=== PATIENT | male | born 1950 | race Caucasian/White ===

== ENCOUNTER 2023-03-24 09:23 | Inpatient (IN) | payer OTHER ==
[~2023-03-24] VITALS: Ht 180.3 cm; Wt 71.5 kg
[2023-03-24] VITALS (10 sets, daily range): BP systolic 135–177; BP diastolic 73–104
[~2023-03-24 09:23] MED LIST: AMIO200 PO; ASPI81CH PO; ATOR20 PO; FURO20 PO; HYDACE5 PO; METO25ER PO; OLME5TAB; OMEP20ER PO; OXYC10TA19 PO; Senna8.6 MG PO; TRAM50 PO
[2023-03-24 10:16] LABS: BASOPHILS ABSOLUTE AUTO 0.03 K/mm3 (0.00-0.23); BASOPHILS PERCENT AUTO 1 % (0-2); EOSINOPHILS ABSOLUTE AUTO 0.53 K/mm3 (0.00-0.68); EOSINOPHILS PERCENT AUTO 10 % (0-6); Hemoglobin 13.6 g/dL (13.5-17.5); IMMATURE GRAN ABSOLUTE AUTO 0.03 K/mm3 (0.00-0.10); IMMATURE GRAN PERCENT AUTO 1 % (0-1); LYMPHOCYTES ABSOLUTE AUTO 1.33 K/mm3 (0.84-5.20); LYMPHOCYTES PERCENT AUTO 24 % (21-46); MONOCYTES ABSOLUTE AUTO 0.58 K/mm3 (0.16-1.47); MONOCYTES PERCENT AUTO 11 % (4-13); Mean Corpuscular HGB 32.2 pg (26.0-34.0); Mean Corpuscular Volume 95 fL (80-100); Mean Platelet Volume 10.6 fL (9.1-12.4); NEUTROPHILS ABSOLUTE AUTO 3.02 K/mm3 (1.96-9.15); NEUTROPHILS PERCENT AUTO 55 % (41-73); Platelet Count 169 K/mm3 (150-400); RDW Coefficient Variation 12.6 % (11.7-14.2); RDW Standard Deviation 43.5 fL (35.1-46.3); Red Blood Cell Count 4.23 M/mm3 (4.30-5.90); White Blood Cell Count 5.52 K/mm3 (4.00-11.30)
[2023-03-24 10:33] LABS: Albumin, Blood 3.7 g/dL (3.4-5.0); Albumin/Globulin Ratio 1.1 (0.8-1.8); Bilirubin, Total 0.5 mg/dL (0.1-1.0); Bun/Creatinine Ratio 16.3 (12.0-20.0); Calcium, Blood 8.5 mg/dL (8.5-10.1); Creatinine, Blood 1.9 mg/dL (0.60-1.20); Globulin, Blood 3.5 g/dL (2.2-4.0); Total Protein, Blood 7.2 g/dL (6.4-8.2)
--- NOTE | 2023-03-24 14:02 | NUR ---
Pt. is awake in ED1. Roland is present at bedside. Bothe welcome my visit. Pt. verbalizes his increased experience with heart activity as well as original inconsistant and conflicting diagnosis he received at the [facility]. Pt. is generally pleasant. Facilitate a life review and re-establish rapport as the Pt. is known to this technical services assistant from the community. Consider matters of puneet and belief. Pt. displays evidence of being intentionally focused on getting his heart diagnosed properly. Prayed with Pt. and spouse. Both verbalize gratitude for the spiritual care visit, and welcome this technical services assistant to visit again.
--- NOTE | 2023-03-24 16:58 | NUR ---
Pt. is awake in bed. I arrived with members of the Pts. family who are known to this tool pusher from the community. Facilitated family story telling and gave pastoral encouragement. Pt. and family verbalized gratitude for the spiritual care visit.
--- NOTE | 2023-03-24 17:38 | NUR ---
PT ARRIVED IN THE UNIT APPORX 1610, PT ABLE TO STAND AND TRANSFER TO BED WITH NO ISSUES. PT ALERT AND ORIENTED X4, ANSWERS QUESTIONS APPROPRIATELY. PT DENIES CHEST PAIN SINCE ARRIVAL HAS SOME CHEST TIGHTNESS WITH EXERTION RESOLVES AT REST, SBP WAS ELEVATED AT 170'S PRN HYDRALAZINE WAS GIVEN SBP TRENDED DOWN TO 150-160'S. HRR SR/SB 50-60'S, SATS ABOVE 95% ON RA, AFEBRILE. AND SOME FAMILY MEMBERS IN THE ROOM, AWARE OF THE PLAN OF CARE. PT FOR SECOND PORTION OF STRESS TEST IN AM NPO AT MIDNIGHT NO CAFFEINE AT THIS TIME. NO OTHER ISSUES AT THIS TIME, PT EATING DINNER IN THE ROOM. PT HAS BEEN CALLING APPROPRIATELY, CALL LIGHTS IN REACH WILL REPORT TO ONCOMING SHIFT
[2023-03-25 01:14] LABS: BASOPHILS ABSOLUTE AUTO 0.05 K/mm3 (0.00-0.23); BASOPHILS PERCENT AUTO 1 % (0-2); EOSINOPHILS ABSOLUTE AUTO 0.62 K/mm3 (0.00-0.68); EOSINOPHILS PERCENT AUTO 10 % (0-6); Hematocrit 38.1 % (37.0-53.0); Hemoglobin 13.1 g/dL (13.5-17.5); IMMATURE GRAN ABSOLUTE AUTO 0.03 K/mm3 (0.00-0.10); IMMATURE GRAN PERCENT AUTO 1 % (0-1); LYMPHOCYTES ABSOLUTE AUTO 1.88 K/mm3 (0.84-5.20); LYMPHOCYTES PERCENT AUTO 32 % (21-46); MONOCYTES PERCENT AUTO 10 % (4-13); Mean Corpuscular HGB Conc 34.4 g/dL (31.5-36.5); Mean Corpuscular Volume 93 fL (80-100); Mean Platelet Volume 10.6 fL (9.1-12.4); NEUTROPHILS ABSOLUTE AUTO 2.76 K/mm3 (1.96-9.15); NEUTROPHILS PERCENT AUTO 47 % (41-73); Platelet Count 155 K/mm3 (150-400); RDW Coefficient Variation 12.5 % (11.7-14.2); RDW Standard Deviation 42.8 fL (35.1-46.3); Red Blood Cell Count 4.09 M/mm3 (4.30-5.90); White Blood Cell Count 5.94 K/mm3 (4.00-11.30)
[2023-03-25 02:09] LABS: Anion Gap 4 mmol/L (6-16); Blood Urea Nitrogen 33 mg/dL (8-24); Bun/Creatinine Ratio 16.6 (12.0-20.0); CHOL/HDL RATIO 7.8; CO2, Blood 27 mmol/L (21-32); Calcium, Blood 8.9 mg/dL (8.5-10.1); Chloride, Blood 111 mmol/L (98-108); Cholesterol 210 mg/dL (50-200); Creatinine, Blood 1.99 mg/dL (0.60-1.20); Glomerular Filtration Rate 35 (60-); Glucose, Blood 108 mg/dL (70-99); HDL Cholesterol 27 mg/dL (>39); LDL/HDL RATIO 4.5; Low Density Lipoprotein Chol 123 mg/dL (0-110); Potassium, Blood 4.9 mmol/L (3.5-5.5); Sodium, Blood 142 mmol/L (136-145); Triglycerides 301 mg/dL (30-160); Very Low Density Lipoprot Chol 60 mg/dL (6-32)
[2023-03-25 05:49] VITALS: BP 151/96
--- NOTE | 2023-03-25 07:05 | NUR ---
SHIFT SUMMARY PATIENT ALERT AND ORIENTED X4. HAD NO COMPLAINTS OF PAIN OR SHORTNESS OF BREATH. PATIENT REPORTED SOME CHEST TIGHTNESS. ON ROOM AIR WITH SPO2 >90%. VITAL SIGNS STABLE, SINUS RHYTHM ON TELE. NO ACUTE ISSUES NOTED OVERNIGHT. WILL CONTINUE TO MONITOR. CALL LIGHT WITHIN REACH.
[2023-03-25 07:28] VITALS: BP 155/90
[2023-03-25 11:16] VITALS: BP 143/73
[2023-03-25 15:22] VITALS: BP 141/84
--- NOTE | 2023-03-25 18:02 | NUR ---
PT SUMMARY; PT WAS ANTICIPATING DISCHARGE THIS AFTERNOONN, PT GOT STRESS TEST DONE RESULT CAME BACK POSITIVE FOR ISCHEMIA, DR HOLT CAME IN AND DISCUSS RESULT WITH BOTH PT AND AND ALSO THE PLAN, LINE CLOSER AND NEHPROLOGIST CONSULTED FOR POSSIBLE PROCEDURE TOMORROW. TO KEEP PT NPO AT MIDNIGHT PT IS AWARE OF THE PLAN. PT HAS BEEN CHEST PAIN FREE BUT HAS HAD SOME CHEST TIGHTNESS EPISODES WITH EXERTION PT STARTED ON IMDUR ER 30MG AND LIPITOR 80MG, NS STARTED AT 50MLS/HR. VITALS HRR SR 60-70'S, SBP 140'S SATS ABOVE 95% ON RA, AFEBRILE. PT REMAINS SBA WITH TRANSFERS, CALLS APPROPRIATELY. NO OTHER ISSUES REPORTED FOR THE SHIFT TO REPORT TO ONCOMING SHIFT
--- NOTE | 2023-03-25 18:08 | NUR ---
Pt. is awake and in be. Pt.is pleasant. Spouse is at Bedside. While visiting Dr. Jara updated the Pt. about his diagnosis and possioble procedure. Prayed with Family. Family verbalized gratitude for the spiritual care visit and welcomed this carton filling machine operator to return.
[2023-03-25 19:16] LABS: Source, Urine Clean Catch
[2023-03-25 19:27] LABS: Appearance, Urine Clear (Clear); Bilirubin, Urine Neg (Neg); Blood, Urine Neg (Neg); Color, Urine Yellow (P-Yellow); Glucose Qualitative, Urine Neg (Neg); Ketones, Urine Neg (Neg); Leukocyte Esterase, Urine Neg (Neg); Nitrite, Urine Neg (Neg); Protein, Urine Neg (Neg); Urobilinogen, Urine NORM (Normal); pH, Urine 6.5 (5.0-8.0)
[2023-03-25 19:41] VITALS: BP 130/72
--- NOTE | 2023-03-25 20:58 | NUR ---
ASSUMPTION OF CARE: THIS RN ASSUMED CARE OF PT AT APPROX 1900, BEDSIDE REPORT COMPLETED. PT ALERT, ORIENTED X4. SITTING UP IN BED CONVERSING W/ FAMILY/FRIENDS. HR 50-60'S, SINUS ON TELE. BP STABLE, MAP >65. DENIES CHEST PAIN/PRESSURE/TIGHTNESS. SPO2 >95% ON RA, RESPIRATIONS EVEN & UNLABORED. INDEPENDENTLY REPOSITIONING IN BED, VOIDING IN URINAL. NS INFUSING AT 50 ML/HR PER EMAR. PLANS FOR NPO AT 0000 FOR POSSIBLE ANGIO IN AM; PT EDUCATED ON NPO STATUS. NO OTHER NEEDS AT THIS TIME, CALL LIGHT IN REACH.
[2023-03-25 23:04] VITALS: BP 131/73
[2023-03-26] VITALS (10 sets, daily range): BP systolic 111–152; BP diastolic 64–88
--- NOTE | 2023-03-26 05:03 | NUR ---
END OF SHIFT NOTE: NO ACUTE EVENTS OVERNIGHT, SEE PREVIOUS NOTE FOR DETAILS. PT CONTINUES TO DENY CHEST PAIN/PRESSURE/TIGHTNESS. VITAL SIGNS STABLE. PT HAS BEEN NPO SINCE 0000 FOR POSSIBLE PROCEDURE THIS AM. NS INFUSING AT 100ML/HR PER EMAR. VOIDING INDEPENDENTLY IN URINAL, LIGHT YELLOW URINE. NO BM'S. NO OTHER NEEDS AT THIS TIME, PT RESTING IN BED. CALL LIGHT IN REACH.
--- NOTE | 2023-03-26 08:27 | NUR ---
PT TO MILITARY ADMINISTRATIVE TECHNICIAN TO MILITARY ADMINISTRATIVE TECHNICIAN AT APPROX 0800.
--- NOTE | 2023-03-26 10:14 | NUR ---
UPDATE PT ARRIVED FROM AT 1005. REPORT RECIEVED FROM HC RN AT BEDSIDE. TR BAND IN PLACE OF LEFT WRIST. PT UPDATED ON FREQUENT ASSESSMENTS PER PROTOCOL. 1 ML REMOVED FROM TR BAND DUE TO PT HAND FEELING COLD AND NOT GETTING A GOOD PLETH ON MONITOR. NO SWELLING OR HEMATOMA NOTED. PT AND FAMILY INSTRUCTED TO CONTACT STAFF IMMEDIATELY IF THERE ARE SIGNS OF BLEEDING, PT AND FAMILY VERBALIZED UNDERSTANDING.
--- NOTE | 2023-03-26 11:41 | NUR ---
CALLED AND UPDATED BY THIS RN PER REQUEST.
--- NOTE | 2023-03-26 12:59 | NUR ---
THIS RN TO BEDSIDE TO REMOVE 2ML FROM TR BAND. SMALL AMOUNT OF BLOOD NOTED AT SITE, 2ML AIR PUT BACK INTO TR BAND.
--- NOTE | 2023-03-26 17:37 | NUR ---
SHIFT SUMMARY PT AOX4 CALLS APPROPRIATELY AND OBEYS COMMANDS. TELE SINUS RHYTHM 60s-70s. PT DENIES CHEST PAIN/PRESSURE. BREATHING EVEN AND UNLABORED. BOWEL TONES PRESENT X4 QUADRANTS PT DENIES N/V/D. PT TO ADJUNCT PHYSICAL EDUCATION INSTRUCTOR TODAY FOR ANGIOGRAM 1 STENT PLACED IN PREVIOUS GRAFT SITE PER HC. TR BAND IN PLACE WHEN PT RETURNED TO UNIT. TR BAND RECOVERED AIR REMOVAL CHARTING TO FOLLOW. NO ACUTE CHANGES. 1220 2ML REMOVED FROM TR BAND 1300 BLOOD NOTED AT INSERTION SITE 2ML INSERTED INTO TR BAND 1450 NO BLOOD NOTED AT INSERTION SITE 2 ML REMOVED 1510 2 ML REMOVED 1525 2 ML REMOVED 1620 2 ML REMOVED 1720 3 ML REMOVED FROM TR BAND COMPLETELY DEFLATED.
--- NOTE | 2023-03-26 17:55 | NUR ---
Pt. is awake in bed and welcomes this hide shaker. Spouse is present at bedside. Both are pleasant and know to this hide shaker from the community. Pt. displayed evidence of understanding that his diagnosis will require him to return in 6-8 wks. Considered many matters of puneet and belief. Prayed with Pt. and then Pt. prayed for [facility] hide shaker. Will remain avilable to Pt. and family.
--- NOTE | 2023-03-26 18:26 | NUR ---
TR BAND REMOVED AT 1820. NO HEMATOMA OR BLEEDING NOTED. SITE CLEANED WITH CHLORAPREP AND TEGADERM PLACED.
--- NOTE | 2023-03-26 21:48 | NUR ---
ASSUMPTION OF CARE: THIS RN ASSUMED CARE OF PT AT 1900, BEDSIDE REPORT FROM EVELINA LU. PT ALERT, ORIENTED X4, SITTING UP IN BED CONVERSING W/ FAMILY. S/P ANGIO W/ LEFT RADIAL SITE. SITE C/D/I W/ DRESSING IN PLACE, NO BLEEDING, BRUISING, OR HEMATOMA FORMATION AT THIS TIME. HR 50-60'S, SINUS ON TELE. BP STABLE, DENIES CHEST PAIN/PRESSURE. SPO2 >95% ON RA. PT INDEPENDENTLY VOIDING IN URINAL, TOLERATING PO INTAKE WELL. PT DENIES PAIN AT THIS TIME. NO OTHER NEEDS AT THIS TIME, CALL LIGHT IN REACH.
[2023-03-27 04:06] VITALS: BP 157/92
[2023-03-27 05:02] LABS: Albumin, Blood 3.2 g/dL (3.4-5.0); Anion Gap 3 mmol/L (6-16); Blood Urea Nitrogen 33 mg/dL (8-24); Bun/Creatinine Ratio 14.6 (12.0-20.0); CO2, Blood 24 mmol/L (21-32); Calcium, Blood 8.6 mg/dL (8.5-10.1); Chloride, Blood 114 mmol/L (98-108); Creatinine, Blood 2.26 mg/dL (0.60-1.20); Glomerular Filtration Rate 30 (60-); Glucose, Blood 105 mg/dL (70-99); Phosphorus, Blood 3.5 mg/dL (2.5-4.9); Potassium, Blood 4.8 mmol/L (3.5-5.5); Sodium, Blood 141 mmol/L (136-145)
--- NOTE | 2023-03-27 05:24 | NUR ---
END OF SHIFT NOTE: NO ACUTE EVENTS OVERNIGHT. PT REMAINS ALERT, ORIENTED X4. COOPERATIVE W/ ALL CARE, ABLE TO CALL APPROPRIATELY. HR 50-60'S, SINUS ON TELE; 6 SEC RUN OF SVT THIS AM ON TELE, PT SLEEPING DURING THIS RUN. CONTINUES TO DENY CHEST PAIN/PRESSURE/TIGHTNESS. SPO2 >90% ON RA, DENIES SOB. LEFT RADIAL SITE REMAINS INTACT; NO BLEEDING, BRUISING, OR HEMATOMA FORMATION. PULSES STRONG ON PALPATION T/O NOC. ABLE TO VOID INDEPENDENTLY IN URINAL, NO BM'S. REPOSITIONED INDEPENDENTLY OVERNIGHT. NO OTHER NEEDS AT THIS TIME, CALL LIGHT IN REACH. WILL REPORT TO ONCOMING RN.
[2023-03-27 07:33] VITALS: BP 141/88
[2023-03-27] MEDS ORDERED: TICA90TA PO (12:34)
[2023-03-27] MEDS ORDERED: ATOR80 PO (12:35)
[2023-03-27] MEDS ORDERED: LOSA25 PO (12:36)
[2023-03-27] MEDS ORDERED: Isosorbide Mono30 MG PO (12:38)
[2023-03-27 12:46] VITALS: BP 137/71
--- NOTE | 2023-03-27 13:24 | NUR ---
SHIFT SUMMARY PT AX4. OBEYS COMMANDS AND CALLS APPROPRIATELY. DENIES CHEST PAIN/PRESSURE. BREATHING EVEN AND UNLABORED. PIV REMOVED. VSS. NO ACUTE CHANGES. PT EDUCATED ON D/C INSTRUCTIONS, NEW RX, AND FOLLOW UP INSTRUCTIONS WITH PCP AND CARDIOLOGY. PT GIVEN STENT CARD INFORMATION. PT VERBALIZED UNDERSTANDING AND QUESTIONS WERE ANSWERED. PT REPORTED NO FURTHER QUESTIONS. PT DISCHARGED AT 1315. PT OFFERED WHEELCHAIR PT DECLINED, PT INDEPENDENTLY AMBULATED FROM UNIT WITH SPOUSE.
[2023-03-27] MEDS ORDERED: CLOP75 PO (13:32)
[2023-03-27] MEDS ORDERED: CLOPIDOGREL300 M1 PO (13:32)
== END 2023-03-27 13:24 | disposition home or self-care (01) | DRG 322 ==
LOC: ER 09:23 → PCU 09:24
PROVIDERS: Emergency Medicine; Hospitalist; ADMIT Internal Medicine
PROC: 027034Z Dilation of Coronary Artery, One Artery with Drug-eluting Intraluminal Device, Percutaneous Approach (ICD-10-PCS; principal; 2023-03-26)
PROC: B2111ZZ Fluoroscopy of Multiple Coronary Arteries using Low Osmolar Contrast (ICD-10-PCS; 2023-03-26)
PROC: 4A023N7 Measurement of Cardiac Sampling and Pressure, Left Heart, Percutaneous Approach (ICD-10-PCS; 2023-03-26)
DX: I21.4 Non-ST elevation (NSTEMI) myocardial infarction (principal); I12.9 Hypertensive chronic kidney disease with stage 1 through stage 4 chronic kidney disease, or unspecified chronic kidney disease; E78.5 Hyperlipidemia, unspecified; I73.9 Peripheral vascular disease, unspecified; Z88.1 Allergy status to other antibiotic agents; Z88.8 Allergy status to other drugs, medicaments and biological substances; N18.32 Chronic kidney disease, stage 3b; I25.118 Atherosclerotic heart disease of native coronary artery with other forms of angina pectoris; M19.90 Unspecified osteoarthritis, unspecified site; G89.4 Chronic pain syndrome; K21.9 Gastro-esophageal reflux disease without esophagitis; F43.10 Post-traumatic stress disorder, unspecified; Z79.899 Other long term (current) drug therapy; Z79.82 Long term (current) use of aspirin; Z87.891 Personal history of nicotine dependence; Z79.891 Long term (current) use of opiate analgesic; Z95.1 Presence of aortocoronary bypass graft; R00.1 Bradycardia, unspecified
CPT/HCPCS: 36415; 71045; 76937; 78452; 80048; 80053; 80061; 80069; 81003; 82570; 84156; 84484; 84550; 85025; 85347; 93005; 93010; 93017; 93306; 93455; 94762; 96372; 99152; 99153; 99285-25; A9270; A9500; C1725; C1769; C1874; C1887; C1894; C9604; G0378; J1644; J2250; J2785; J3010; J7030; J7050; Q9967